=== PATIENT | male | born 1985 | race Caucasian/White ===

== ENCOUNTER 2018-05-06 14:20 | Emergency (ER) | payer SELFPAY ==
[2018-05-06 14:30] VITALS: BP 143/91; PULSE 67; TEMP 98.3; BMI 31.5
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
[2018-05-06] MEDS ORDERED: KETOROLAC TROMETHAMINE 60 MG/2 ML VIAL IM ONE (15:00)
[2018-05-06] MEDS ORDERED: KETOROLAC TROMETHAMINE 60 MG/2 ML VIAL ONE (15:04)
== END 2018-05-06 16:21 | disposition home or self-care (01) ==
LOC: JERFT 14:20
DX: M79.602 Pain in left arm (principal); M54.5 Low back pain; S16.1XXA Strain of muscle, fascia and tendon at neck level, initial encounter; W22.8XXA Striking against or struck by other objects, initial encounter; Y93.89 Activity, other specified; Y92.89 Other specified places as the place of occurrence of the external cause; Y99.0 Civilian activity done for income or pay
CPT/HCPCS: 72050-TC-FY; 73060-TC-LT-FY; 99281-25

== ENCOUNTER 2019-06-18 14:40 | Emergency (ER) | payer SELFPAY ==
[2019-06-18 15:06] VITALS: BMI 32.3
[2019-06-18] MEDS ORDERED: ACETAMINOPHEN 1000 MG/100 ML VIAL (NON FORMULARY) IVPB ONE (15:25)
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
[2019-06-18] MEDS ORDERED: ACETAMINOPHEN INJECTION 100 ML IVPB ONE (15:57)
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
[2019-06-18 16:17] LABS: BASO % 0.2 % (0-2.0); EOS % 0.1 % (0-4.5); HEMATOCRIT 43.7 % (35.4-49); HEMOGLOBIN 14.5 GM/dL (11.7-16.9); LYMPH % 12.1 % (8-40); MCH 29.9 pg (25.7-33.7); MCHC 33.3 g/dl (32.0-35.9); MEAN CELL VOLUME 89.7 fl (80-96); MONO % 4.4 % (3.8-10.2); NEUT % 83.2 % (42.8-82.8); PLATELET COUNT 335 K/MM3 (134-434); RBC 4.87 M/mm3 (4.00-5.60); RDW 13.2 % (11.9-15.9); WHITE BLOOD COUNT 18.5 K/mm3 (4.0-10.0)
[2019-06-18 16:31] LABS: INR 1.01 (0.83-1.09); PROTHROMBIN TIME (PATIENT) 11.9 SEC (9.7-13.0)
[2019-06-18 16:34] LABS: ACTIVATED PTT 28.9 SECONDS (25.2-36.5)
[2019-06-18 16:44] LABS: ALBUMIN 4.3 g/dl (3.4-5.0); BILIRUBIN,TOTAL 0.4 mg/dL (0.2-1); BLOOD UREA NITROGEN 17.7 mg/dL (7-18); CALCIUM 9.1 mg/dL (8.5-10.1); CREATININE 1.2 mg/dL (0.55-1.3); POTASSIUM 4.1 mmol/L (3.5-5.1); TOT PROT 8.1 g/dl (6.4-8.2)
[2019-06-18 17:55] VITALS: BP 132/82; PULSE 67; TEMP 98.8
== END 2019-06-18 18:09 | disposition home or self-care (01) ==
LOC: JER 14:40
PROC: 3E033NZ Introduction of Analgesics, Hypnotics, Sedatives into Peripheral Vein, Percutaneous Approach (ICD-10-PCS; principal; 2019-06-18)
DX: S43.102A Unspecified dislocation of left acromioclavicular joint, initial encounter (principal); S06.0X9A Concussion with loss of consciousness of unspecified duration, initial encounter; V86.55XA Driver of 3- or 4- wheeled all-terrain vehicle (ATV) injured in nontraffic accident, initial encounter; Y92.488 Other paved roadways as the place of occurrence of the external cause; Y93.I9 Activity, other involving external motion; Y99.8 Other external cause status
CPT/HCPCS: 36415; 70450-TC; 73030-TC-LT-FY; 80053; 83605; 85025; 85610; 85730; 86850; 86900; 86901; 99283-25; J0131